=== PATIENT | male | born 1965 | race Two or more races ===

== ENCOUNTER 2020-10-15 20:37 | Emergency (ER) | payer MEDICAID ==
[~2020-10-15] VITALS: Ht 165.1 cm; Wt 77.1 kg
[2020-10-15 20:37] VITALS: BP 131/92
[2020-10-15 21:06] LABS: Basophils # (auto) 0.1 10 ^3/uL (0-0.2); Basophils % (auto) 0.8 % (0.0-2.0); Eosinophils # (auto) 1.1 10 ^3/uL (0-0.8); Hematocrit 43.5 % (41.0-53.0); Hemoglobin 15.3 g/dL (13.5-17.5); Lymphocytes # (auto) 3.5 10 ^3/uL (0.4-5.4); Lymphocytes % (auto) 23.7 % (10.0-50.0); Mean Corpuscular Hemoglobin 30.9 pg (28.0-32.0); Mean Corpuscular Hgb Conc. 35.2 g/dL (32.0-36.0); Monocytes # (auto) 1.7 10 ^3/uL (0-1.3); Monocytes % (auto) 11.7 % (0.0-12.0); Neutrophils # (auto) 8.5 10 ^3/uL (1.6-8.6); Neutrophils % (auto) 56.8 % (37.0-80.0); Red Blood Cells 4.95 10^6/uL (4.5-5.90); Red Cell Distribution Width 13.7 % (11.8-14.3)
[2020-10-15 21:18] LABS: Urine WBC None Seen /hpf (0 - 3)
[2020-10-15 21:21] LABS: INR 0.89 (0.9-1.15); Partial Thromboplastin Time 26.1 sec (23.0-31.2)
[2020-10-15 21:33] LABS: Albumin 3.5 g/dL (3.4-5.0); Amylase 70 U/L (25-115); Anion Gap 7 (5-15); BUN/Creatinine Ratio 13.7; Blood Urea Nitrogen 13 mg/dL (7-18); Calcium 8.2 mg/dL (8.5-10.1); Carbon Dioxide 25 mmol/L (21-32); Chloride 107 mmol/L (98-107); GFR African American 107 mL/min; GFR Non-African American 88 mL/min; Glucose 109 mg/dL (74-106); Lipase 172 U/L (73-393); Potassium 3.6 mmol/L (3.5-5.1); Sodium 139 mmol/L (136-145)
[2020-10-15 21:38] LABS: Alanine Aminotransferase 50 U/L (16-61); Alkaline Phosphatase 121 U/L (45-117); Aspartate Aminotransferase 31 U/L (15-37); Bilirubin, Total 0.4 mg/dL (0.2-1.0); Total Protein 7.9 g/dL (6.4-8.2)
[2020-10-15 21:56] LABS: Urine Bacteria NONE SEEN /hpf (None Seen); Urine Blood Negative /uL (Negative); Urine Specific Gravity 1.019 (1.001-1.035)
== END 2020-10-15 22:45 | disposition left against medical advice (07) ==
LOC: ER 20:37
DX: K57.32 Diverticulitis of large intestine without perforation or abscess without bleeding (principal); I10 Essential (primary) hypertension; E78.5 Hyperlipidemia, unspecified; Z90.49 Acquired absence of other specified parts of digestive tract
CPT/HCPCS: 36415; 71045; 74176; 80053; 81001; 82150; 83690; 84484; 85025; 85049; 85610; 85730; 93005

== ENCOUNTER 2022-03-24 16:39 | Emergency (ER) | payer MEDICAID ==
[~2022-03-24] VITALS: Ht 165.1 cm; Wt 72.7 kg
[2022-03-24 17:47] VITALS: BP 146/88
[2022-03-24] MEDS ORDERED: CEPH-510 PO (18:10)
== END 2022-03-24 18:13 | disposition home or self-care (01) ==
LOC: ER 16:39
DX: L03.011 Cellulitis of right finger (principal); I10 Essential (primary) hypertension; E78.5 Hyperlipidemia, unspecified; Z90.49 Acquired absence of other specified parts of digestive tract; Z79.899 Other long term (current) drug therapy
CPT/HCPCS: 73140